=== PATIENT | female | born 1970 | race Caucasian/White ===

== ENCOUNTER 2016-10-07 17:05 | Emergency (ER) | payer OTHER ==
[2016-10-07] MEDS ORDERED: Ibuprofen 800 MG TAB ONE (17:25)
[2016-10-07 17:51] LABS: Bilirubin Negative (Negative); Blood, Urine Small (Negative); Glucose, Urine (Dipstick) Negative (Negative); Ketone, Urine Negative (Negative); Nitrite Negative (Negative); Protein, Urine (Dipstick) Negative (Neg-Trace); Urobilinogen 0.2 mg/dL (0.2-1.0)
[2016-10-07 18:00] LABS: Bacteria/HPF 2+ HPF (None Seen); Hyaline Casts/LPF NONE SEEN LPF (0-3 Hyaline); Oval Fat Bodies/HPF None Seen HPF (None Seen); Renal Epithelial None Seen HPF (0-3); Sperm/HPF None Seen HPF (None Seen); Squamous Epithelial 0-3 HPF (0-3); Transitional Epithelial NONE SEEN HPF (0-3); Trichomonas/HPF None Seen HPF (None Seen); WBC/HPF 0-3 HPF (0-3); Yeast-All Forms None Seen HPF (None Seen)
== END 2016-10-07 18:39 | disposition home or self-care (01) ==
LOC: BURERS 17:05
DX: J11.1 Influenza due to unidentified influenza virus with other respiratory manifestations (principal); F32.9 Major depressive disorder, single episode, unspecified; Z79.899 Other long term (current) drug therapy
CPT/HCPCS: 81003; 81015; 87430; 96360

== ENCOUNTER 2016-10-18 14:21 | Outpatient (CLI) | payer OTHER ==
[2016-10-18 15:08] LABS: Methadone Not Detected (NotDetected); Methamphetamine Detected (NotDetected)
== END 2016-10-18 14:22 | disposition home or self-care (01) ==
LOC: HPCALD 14:21
PROVIDERS: ATTEND Family Medicine
DX: Z51.81 Encounter for therapeutic drug level monitoring (principal); Z79.891 Long term (current) use of opiate analgesic
CPT/HCPCS: 80306

== ENCOUNTER 2017-12-31 16:36 | Emergency (ER) | payer OTHER ==
[2017-12-31] MEDS ORDERED: HYDROcodone/Acetaminophen 10/325 mg Tablet ONE (17:03)
[2017-12-31] MEDS ORDERED: Amoxicillin/Potassium Clav 875 MG TAB ONE (17:05)
== END 2017-12-31 17:47 ==
LOC: BURERS 16:36
DX: H60.92 Unspecified otitis externa, left ear (principal); F32.9 Major depressive disorder, single episode, unspecified; F17.210 Nicotine dependence, cigarettes, uncomplicated
CPT/HCPCS: 99282

== ENCOUNTER 2018-07-07 10:38 | Outpatient (CLI) | payer OTHER ==
--- NOTE | 2018-07-07 19:18 | RAD ---
THORACIC SPINE THREE VIEWS: 07/07/2018 COMPARISON: Prior lumbar spine study from 10/24/2015 and prior lateral chest film from 11/29/2013. FINDINGS: The patient has corrective spinal rods in place, that begin at about the T5 level. The rods have bro gabrielle bilaterally, at the T12-L1 level. There are mild anterior compression fractures of T11, T12, and L1. These findings are exacerbated since the 2015 study. The mid to upper thoracic spine is unrema rkable. There may be a small break in the screw on one side, at T5, but this is difficult to be sure about. 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 The lateral view shows the rods are protr uding posteriorly a bit now. POS: HOME
--- NOTE | 2018-07-07 19:20 | RAD ---
LUMBAR SPINE THREE VIEWS: 07/07/2018 FINDINGS: Again noted are the breaks in the spinal rods around the L4-L5 level. The appearance and alignment a t this level has not really changed much in the interval. The lateral view shows mild compression of the L5 vertebra, a bit more so than in 2016. There is some prominent scalloping of the endplates of L3, more so than before. Incidentally noted is an IVC filter in place, with the tip at approximatel y the lower L3 level. IMPRESSION: 1. Breaks in the lower spinal rods, around the L4-L5 level, with little change in its appearance sin ce 2016. 2. New breaks in the rods at the T11-T12 level that show some significant posterior protrusion, comp ared to before. POS: HOME
== END 2018-07-07 10:39 | disposition home or self-care (01) ==
LOC: BURRAD 10:38
PROVIDERS: ATTEND Family Medicine
DX: M54.41 Lumbago with sciatica, right side (principal); M54.6 Pain in thoracic spine; M51.24 Other intervertebral disc displacement, thoracic region
CPT/HCPCS: 72072; 72100

== ENCOUNTER 2018-07-23 12:39 | Emergency (ER) | payer OTHER ==
[2018-07-23] MEDS ORDERED: Famotidine In NaCl 20 mg/50 ml Premix Bag ONE ×2 (12:59→13:05)
[2018-07-23] MEDS ORDERED: Ondansetron PF 4 MG/2 ML Vial ONE (13:02)
[2018-07-23 13:12] LABS: #Eosinphils 0.1 thou/uL (0.0-0.7); #Lymphocytes 0.5 thou/uL (1.20-3.40); #Monocytes 0.4 thou/uL (0.11-0.59); #Neutrophils 11.2 thou/uL (1.40-6.50); %Basophils 0.4 % (0.0-1.0); %Eosinophils 1.1 % (0.0-10.0); %Lymphocytes 4.1 % (21.0-51.0); %Monocytes 3.4 % (0.0-10.0); Hemoglobin 13.8 g/dL (12.0-16.0); Mean Corpuscular HGB CONC 34.5 g/dL (32.0-36.0); Mean Corpuscular Hemoglobin 30.4 pg (27.0-31.0); Mean Corpuscular Volume 88.4 fL (78.0-98.0); Mean Platelet Volume 7.9 fL (7.4-10.4); Platelet Count 285 thou/uL (130-400); RBC Distribution Width 12.6 % (11.5-14.5); Red Blood Cell (RBC) Count 4.55 mill/uL (4.20-5.40); White Blood Cell (WBC) Count 12.3 thou/uL (4.8-10.8)
[2018-07-23] MEDS ORDERED: Glycopyrrolate 0.4 MG/ 2 ML VIAL SLOW IVP SCH (13:15)
[2018-07-23 13:23] LABS: ALT (SGPT) 81 U/L (8-55); AST (SGOT) 50 U/L (5-34); Albumin 4.1 g/dL (3.5-5.0); Alkaline Phosphatase 67 U/L (40-150); Anion Gap 12 mmol/L (10-20); BUN (Urea Nitrogen) 16 mg/dL (7.0-18.7); Bilirubin, Total 0.3 mg/dL (0.2-1.2); Calc. Creatinine Clearance 0 mL/min (70-130); Carbon Dioxide 27 mmol/L (22-29); Chloride 107 mmol/L (98-107); Estimated GFR-MDRD Greater than 90; Globulin 2.8 g/dL (2.4-3.5); Glucose 103 mg/dL (70-105); Lipase 24 U/L (8-78); Potassium 3.9 mmol/L (3.5-5.1); Protein, Total 6.9 g/dL (6.0-8.3); Sodium 142 mmol/L (136-145)
[2018-07-23 14:43] LABS: Clarity Cloudy (Clear)
[2018-07-23 14:44] LABS: Bilirubin Negative (Negative); Blood, Urine Trace (Negative); Glucose, Urine (Dipstick) Negative (Negative); Leukocyte Negative (Negative); Nitrite Positive (Negative); Protein, Urine (Dipstick) Negative (Neg-Trace); Urobilinogen 0.2 mg/dL (0.2-1.0)
[2018-07-23 14:49] LABS: Bacteria/HPF 4+ HPF (None Seen); Crystals/HPF None Seen HPF (Negative); Hyaline Casts/LPF NONE SEEN LPF (0-3 Hyaline); Other Casts/LPF None Seen LPF (0-3 Hyaline); Oval Fat Bodies/HPF None Seen HPF (None Seen); RBC/HPF 0-3 HPF (0-3); Renal Epithelial None Seen HPF (0-3); Sperm/HPF None Seen HPF (None Seen); Squamous Epithelial 0-3 HPF (0-3); Transitional Epithelial NONE SEEN HPF (0-3); Trichomonas/HPF None Seen HPF (None Seen); WBC/HPF 0-3 HPF (0-3); Yeast-All Forms None Seen HPF (None Seen)
== END 2018-07-23 16:14 | disposition home or self-care (01) ==
LOC: BURERS 12:39
DX: R11.2 Nausea with vomiting, unspecified (principal); R19.7 Diarrhea, unspecified; F32.9 Major depressive disorder, single episode, unspecified; F17.210 Nicotine dependence, cigarettes, uncomplicated
CPT/HCPCS: 80053; 81003; 81015; 83690; 85025; 87077; 87086; 87186; 96365; 96366; 96375; J2405

== ENCOUNTER 2019-09-24 08:52 | Emergency (ER) | payer OTHER ==
[2019-09-24] MEDS ORDERED: Ibuprofen 200 MG TAB ONE (09:29)
[2019-09-24] MEDS ORDERED: traMADol HCl 50 MG TAB ONE (09:29)
--- NOTE | 2019-09-24 12:40 | RAD ---
CERVICAL SPINE: DATE: 09/24/2019. FINDINGS: Various AP, lateral, and swimmer's views were provided. No fracture, dislocation, or soft tissue swe lling was seen. The C1 to dens distance is normal. There is disk space narrowing at C6-C7, and to a minor extent at C4-C5. There is no loss of the normal cervical lordosis. IMPRESSION: Minor narrowing at C6-C7 and C4-C5. POS: [facility]
== END 2019-09-24 10:22 | disposition home or self-care (01) ==
LOC: BURERS 08:52
DX: M47.812 Spondylosis without myelopathy or radiculopathy, cervical region (principal); M62.838 Other muscle spasm; F32.9 Major depressive disorder, single episode, unspecified; F17.210 Nicotine dependence, cigarettes, uncomplicated; Z89.222 Acquired absence of left upper limb above elbow
CPT/HCPCS: 72040

== ENCOUNTER 2021-04-23 15:30 | Emergency (ER) | payer OTHER ==
[2021-04-23] MEDS ORDERED: Lidocaine 1% PF 5 ML VIAL ONE (15:50)
[2021-04-23] MEDS ORDERED: cefTRIAXone\\ROCEPHIN 1 GM VIAL ONE (15:50)
[2021-04-23] MEDS ORDERED: Bacitracin 1 PK ONE (15:50)
[2021-04-23] MEDS ORDERED: HYDROcodone/Acetaminophen 10/325 mg Tablet ONE (15:50)
[2021-04-23] MEDS ORDERED: Ibuprofen 800 MG TAB ONE (15:50)
== END 2021-04-23 16:13 | disposition home or self-care (01) ==
LOC: BURERS 15:30
DX: L03.113 Cellulitis of right upper limb (principal); F17.210 Nicotine dependence, cigarettes, uncomplicated
CPT/HCPCS: 87070; 87077; 87205; 96372; 99283; J0696

== ENCOUNTER 2022-01-28 03:43 | Emergency (ER) | payer OTHER ==
[2022-01-28] MEDS ORDERED: Cephalexin 250 MG CAP ONE (04:09)
== END 2022-01-28 04:15 | disposition home or self-care (01) ==
LOC: BURERS 03:43
DX: L03.115 Cellulitis of right lower limb (principal); F17.210 Nicotine dependence, cigarettes, uncomplicated
CPT/HCPCS: 99283

== ENCOUNTER 2024-08-24 09:50 | Outpatient (CLI) | payer OTHER | END 2024-08-24 09:51 | disposition home or self-care (01) | LOC: BURCT 09:50 | PROVIDERS: ATTEND Neurological Surgery | DX: M54.50 Low back pain, unspecified (principal); M51.35 Other intervertebral disc degeneration, thoracolumbar region; S22.089A Unspecified fracture of T11-T12 vertebra, initial encounter for closed fracture; S32.019A Unspecified fracture of first lumbar vertebra, initial encounter for closed fracture; M43.8X4 Other specified deforming dorsopathies, thoracic region; S32.049A Unspecified fracture of fourth lumbar vertebra, initial encounter for closed fracture; S32.059A Unspecified fracture of fifth lumbar vertebra, initial encounter for closed fracture; Z98.890 Other specified postprocedural states; Z98.1 Arthrodesis status | CPT/HCPCS: 72128; 72131 ==